=== PATIENT | male | born 1955 | race African-American/Black ===

== ENCOUNTER 2017-12-06 11:14 | Emergency (ER) | payer SELFPAY ==
[2017-12-06] MEDS ORDERED: IBUPROFEN 200 MG TAB PO ONE (12:09)
[2017-12-06] MEDS ORDERED: HYDROCODONE/APAP 10/325 TAB ONE (12:09)
[2017-12-06 13:08] LABS: Urine Blood NEGATIVE (NEG); Urine Glucose NEGATIVE (NEG); Urine Protein TRACE (NEG); Urine pH 5.5 (5.0-7.0)
--- NOTE | 2017-12-06 13:43 | EDPHYS ---
Physician Documentation [facility] Name: Baldev Huerta Age: 62 yrs Sex: Male : 1955 Arrival Date: 12/06/2017 Time: 11:17 Bed 23 Private MD: ED Physician Parker Epstein HPI: 12/06 11:57 This 62 yrs old Black Male presents to ER via EMS with complaints of Back Pain. monique 11:57 The patient presents with pain and decreased range of motion, and swelling, and monique tenderness. The symptoms are located in the low back, left low back and left mid back. Onset: The symptoms/episode began/occurred 3 day(s) ago. The pain radiates to the left low back. Associated signs and symptoms: The patient has no apparent associated signs or symptoms. Modifying factors: The patient symptoms are alleviated by remaining still, rest, the patient symptoms are aggravated by movement, walking. Severity of symptoms: At their worst the symptoms were moderate, in the emergency department the symptoms are unchanged. Historical: - Allergies: 11:20 NKA; iw - Home Meds: 11:20 None [Active]; iw - PMHx: 11:20 None; iw - PSHx: 11:20 None; iw - Immunization history:: Adult Immunizations up to date. - Social history:: Smoking status: Patient uses tobacco products, smokes one-half pack cigarettes per day. - Ebola Screening: : Patient negative for fever greater than or equal to 101.5 degrees Fahrenheit, and additional compatible Ebola Virus Disease symptoms Patient denies exposure to infectious person Patient denies travel to an Ebola-affected area in the 21 days before illness onset No symptoms or risks identified at this time. - Family history:: not pertinent. ROS: 11:57 Constitutional: Negative for fever, chills, and weight loss, Eyes: Negative for injury, monique pain, redness, and discharge, ENT: Negative for injury, pain, and discharge, Neck: Negative for injury, pain, and swelling, Cardiovascular: Negative for chest pain, palpitations, and edema, Respiratory: Negative for shortness of breath, cough, wheezing, and pleuritic chest pain, Abdomen/GI: Negative for abdominal pain, nausea, vomiting, diarrhea, and constipation, : Negative for injury, bleeding, discharge, and swelling, MS/Extremity: Negative for injury and deformity, Skin: Negative for injury, rash, and discoloration, Neuro: Negative for headache, weakness, numbness, tingling, and seizure, Psych: Negative for depression, anxiety, suicide ideation, homicidal ideation, and hallucinations, Allergy/Immunology: Negative for hives, rash, and allergies, Endocrine: Negative for neck swelling, polydipsia, polyuria, polyphagia, and marked weight changes, Hematologic/Lymphatic: Negative for swollen nodes, abnormal bleeding, and unusual bruising. 11:57 Back: Positive for decreased range of motion, pain at rest, pain with movement, radiated pain, of the left low back and left mid back. Exam: 11:57 Constitutional: This is a well developed, well nourished patient who is awake, alert, monique and in no acute distress. Head/Face: Normocephalic, atraumatic. Eyes: Pupils equal round and reactive to light, extra-ocular motions intact. Lids and lashes normal. Conjunctiva and sclera are non-icteric and not injected. Cornea within normal limits. Periorbital areas with no swelling, redness, or edema. ENT: Nares patent. No nasal discharge, no septal abnormalities noted. Tympanic membranes are normal and external auditory canals are clear. Oropharynx with no redness, swelling, or masses, exudates, or evidence of obstruction, uvula midline. Mucous membranes moist. Neck: Trachea midline, no thyromegaly or masses palpated, and no cervical lymphadenopathy. Supple, full range of motion without nuchal rigidity, or vertebral point tenderness. No Meningismus. Chest/axilla: Normal chest wall appearance and motion. Nontender with no deformity. No lesions are appreciated. Cardiovascular: Regular rate and rhythm with a normal S1 and S2. No gallops, murmurs, or rubs. Normal PMI, no JVD. No pulse deficits. Respiratory: Lungs have equal breath sounds bilaterally, clear to auscultation and percussion. No rales, rhonchi or wheezes noted. No increased work of breathing, no retractions or nasal flaring. Abdomen/GI: Soft, non-tender, with normal bowel sounds. No distension or tympany. No guarding or rebound. No evidence of tenderness throughout. Skin: Warm, dry with normal turgor. Normal color with no rashes, no lesions, and no evidence of cellulitis. MS/ Extremity: Pulses equal, no cyanosis. Neurovascular intact. Full, normal range of motion. Neuro: Awake and alert, GCS 15, oriented to person, place, time, and situation. Cranial nerves II-XII grossly intact. Motor strength 5/5 in all extremities. Sensory grossly intact. Cerebellar exam normal. Normal gait. Psych: Awake, alert, with orientation to person, place and time. Behavior, mood, and affect are within normal limits. 11:57 Back: ROM is painful, normal spinal alignment noted, CVA tenderness, is absent, vertebral tenderness, is not appreciated, muscle spasm, is appreciated in the left low back and left mid back. Vital Signs: 11:20 BP 135 / 84; Pulse 64; Resp 16; Temp 98.2; Pulse Ox 100% on R/A; Weight 77.11 kg; iw Height 5 ft. 6 in. (167.64 cm); Pain 06/21; 11:20 Body Mass Index 27.44 (77.11 kg, 167.64 cm) MDM: 11:22 Patient medically screened. [facility] 11:57 Data reviewed: vital signs, nurses notes. [facility] 12/06 12:19 Order name: Urine Dipstick--Ancillary (enter results); Complete Time: 13:41 [facility] 12/06 11:56 Order name: Lumbar Spine (3 Views) XRAY [facility] 12/06 11:56 Order name: Urine Dipstick-Ancillary (obtain specimen); Complete Time: 12:16 [facility] Administered Medications: 12:16 Drug: Motrin 600 mg Route: PO; iw 12:30 Follow up: Response: No adverse reaction 12:16 Drug: [place] 10 mg-325 mg 1 tabs Route: PO; iw 13:00 Follow up: Response: No adverse reaction; Pain is decreased iw Disposition: 12/06/17 13:42 Discharged to Home. Impression: Low back pain, Sciatica, left side. - Condition is Stable. - Discharge Instructions: Musculoskeletal Pain, Sciatica, Back Injury Prevention, [id number], Back Pain, Adult, [id number]. - Prescriptions for Ibuprofen 600 mg Oral Tablet - take 1 tablet by ORAL route every 8 hours As needed take with food; 21 tablet. Skelaxin 800 mg Oral Tablet - take 1 tablet by ORAL route every 6 hours As needed; 28 tablet. Tylenol- Codeine #3 300-30 mg Oral Tablet - take 2 tablet by ORAL route every 6 hours As needed; 30 tablet. Medrol ([place]) 4 mg Oral Tablets, Dose Pack - take 1 tablet by ORAL route as directed - follow package instructions; 1 packet. - Medication Reconciliation Form, Thank You Letter, Antibiotic Education, Prescription Opioid Use, Work release form form. - Follow up: Private Physician; When: 2 - 3 days; Reason: Recheck today's complaints, Continuance of care, Re-evaluation by your physician. Signatures: Dispatcher [employer] Parker Lofton MD MD cha Williams, Irene, RN RN iw Corrections: (The following items were deleted from the chart) 14:13 13:42 12/06/2017 13:42 Discharged to Home. Impression: Low back pain; Sciatica, left iw side. Condition is Stable. Discharge Instructions: Musculoskeletal Pain, Sciatica, Back Injury Prevention, Gajn-[id number], Back Pain, Adult, Yryy-al-Nenl. Prescriptions for Ibuprofen 600 mg Oral Tablet - take 1 tablet by ORAL route every 8 hours As needed take with food; 21 tablet, Skelaxin 800 mg Oral Tablet - take 1 tablet by ORAL route every 6 hours As needed; 28 tablet, Tylenol-Codeine #3 300-30 mg Oral Tablet - take 2 tablet by ORAL route every 6 hours As needed; 30 tablet, Medrol ([place]) 4 mg Oral Tablets, Dose Pack - take 1 tablet by ORAL route as directed - follow package instructions; 1 packet. and Forms are Medication Reconciliation Form, Thank You Letter, Antibiotic Education, Prescription Opioid Use. Follow up: Private Physician; When: 2 - 3 days; Reason: Recheck today's complaints, Continuance of care, Re-evaluation by your physician. monique
--- NOTE | 2017-12-06 13:43 | ER ---
Nurse's Notes [facility] Name: Baldev Huerta Age: 62 yrs Sex: Male : 1955 Arrival Date: 12/06/2017 Time: 11:17 Bed 23 Private MD: Diagnosis: Low back pain;Sciatica, left side Presentation: 12/06 11:18 Presenting complaint: Patient states: left lower back pain X 2 days after walking in sand and sinking into sand, pain got worse today after being at work, worse when bending over, now a 1/10 while sitting. Transition of care: patient was not received from another setting of care. Onset of symptoms was December 04, 2017. Risk Assessment: Do you want to hurt yourself or someone else? Patient reports no desire to harm self or others. Initial Sepsis Screen: Does the patient meet any 2 criteria? No. Patient's initial sepsis screen is negative. Does the patient have a suspected source of infection? No. Patient's initial sepsis screen is negative. Care prior to arrival: None. 11:18 Method Of Arrival: EMS: [facility] 11:18 Acuity: BART 4 iw Historical: - Allergies: 11:20 NKA; iw - Home Meds: 11:20 None [Active]; iw - PMHx: 11:20 None; iw - PSHx: 11:20 None; iw - Immunization history:: Adult Immunizations up to date. - Social history:: Smoking status: Patient uses tobacco products, smokes one-half pack cigarettes per day. - Ebola Screening: : Patient negative for fever greater than or equal to 101.5 degrees Fahrenheit, and additional compatible Ebola Virus Disease symptoms Patient denies exposure to infectious person Patient denies travel to an Ebola-affected area in the 21 days before illness onset No symptoms or risks identified at this time. - Family history:: not pertinent. Screenin:50 Abuse screen: Denies threats or abuse. Denies injuries from another. Nutritional iw screening: No deficits noted. Tuberculosis screening: No symptoms or risk factors identified. Fall Risk None identified. Assessment: 11:49 General: Appears in no apparent distress. Behavior is calm, cooperative. Pain: iw Complains of pain in left low back Pain currently is 1 out of 10 on a pain scale. Neuro: Level of Consciousness is awake, alert, obeys commands, Oriented to person, place, time, situation, Moves all extremities. Full function. Cardiovascular: Patient's skin is warm and dry. Respiratory: Respiratory effort is even, unlabored. Derm: Skin is pink, warm \T\ dry. normal. Musculoskeletal: Range of motion: intact in all extremities, Reports pain in back. 13:03 Reassessment: Patient appears in no apparent distress at this time. Patient and/or iw family updated on plan of care and expected duration. Pain level reassessed. Patient is alert, oriented x 3, equal unlabored respirations, skin warm/dry/pink. Vital Signs: 11:20 BP 135 / 84; Pulse 64; Resp 16; Temp 98.2; Pulse Ox 100% on R/A; Weight 77.11 kg; iw Height 5 ft. 6 in. (167.64 cm); Pain 06/21; 11:20 Body Mass Index 27.44 (77.11 kg, 167.64 cm) iw ED Course: 11:17 Patient arrived in ED. iw 11:20 Triage completed. iw 11:20 Arm band placed on. iw 11:22 Parker Epstein MD is Attending Physician. monique 11:40 Patient has correct armband on for positive identification. iw 11:43 Lisa Zhao, RN is Primary Nurse. iw 11:50 No provider procedures requiring assistance completed. Patient did not have IV access iw during this emergency room visit. 13:06 Patient moved to radiology via wheelchair. jb2 13:11 X-ray completed. Patient tolerated procedure well. jb2 13:12 Lumbar Spine (3 Views) XRAY In Process Unspecified. EDMS 13:24 Patient moved back from radiology. jb2 Administered Medications: 12:16 Drug: Motrin 600 mg Route: PO; iw 12:30 Follow up: Response: No adverse reaction iw 12:16 Drug: [place] 10 mg-325 mg 1 tabs Route: PO; iw 13:00 Follow up: Response: No adverse reaction; Pain is decreased iw Outcome: 13:42 Discharge ordered by . monique 14:10 Discharged to home ambulatory. iw 14:10 Condition: good 14:10 Discharge instructions given to patient, Instructed on discharge instructions, follow up and referral plans. medication usage, Demonstrated understanding of instructions, follow-up care, medications, Prescriptions given X 3. 14:13 Patient left the ED. iw Signatures: Dispatcher [employer] Parker Lofton MD MD cha Buechter, Jesse jb2 Williams, Irene, RN RN iw
--- NOTE | 2017-12-06 14:04 | RAD REPORT ---
EXAM DESCRIPTION: RAD - Lumbar Spine 3 Views - 12/06/2017 1:22 pm CLINICAL HISTORY: Back pain COMPARISON: None. FINDINGS: A three-view lumbar spine examination was performed. Lumbar bodies are normal in height an d normal in AP alignment. No lumbar disc space narrowing. T10-11 disc space is narrowed but not fully assessed on this study. There is a very subtle scoliotic curvature in the lumbar spine. [place] is at the lumbosacral junction on the right with minimal left curvature at L5. No fracture or acute b lencho process seen. Mild lower lumbar facet degenerative change. No pars defects identified. IMPRESSION: No fracture or acute lumbar finding. Patient has a minimal underlying scoliotic curvatur e. T10-11 disc space narrowing not fully assessed on this lumbar examination. Concerns for disc herniation, central canal abnormality or occult bone process could be addressed wit h MR imaging.
== END 2017-12-06 14:13 | disposition home or self-care (01) ==
LOC: ER 11:14
DX: M54.32 Sciatica, left side (principal); F17.210 Nicotine dependence, cigarettes, uncomplicated
CPT/HCPCS: 72100; 81003; 99284